=== PATIENT | male | born 2000 | race Caucasian/White ===

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

== ENCOUNTER 2019-03-30 21:38 | Inpatient (IN) | payer BC ==
[2019-03-30] MEDS ORDERED: VANCOMYCIN IV PER PHARMACY 1 EACH MISC MISCELLANE PRN (22:45)
[2019-03-30] MEDS ORDERED: PIPERACILLIN-TAZOBACTAM 3.375 GM in SODIUM CHLORIDE 0.9% 100 ML IVPB STA (22:48)
[2019-03-30] MEDS ORDERED: NALOXONE 0.4 MG/ML 1 ML VIAL IV PRN (22:48)
[2019-03-30] MEDS ORDERED: VANCOMYCIN 1,500 MG in SODIUM CHLORIDE 0.9% 250 ML IVPB STA (22:48)
[2019-03-30] MEDS ORDERED: IBUPROFEN 400 MG TAB PO PRN (22:51)
[2019-03-30] MEDS ORDERED: ACETAMINOPHEN TAB 325 MG TAB PO PRN (22:51)
--- NOTE | 2019-03-30 22:56 | ED ---
General Adult HPI - General Source: patient, RN notes reviewed, old records reviewed Mode of arrival: ambulatory Limitations: no limitations <Jitendra Chun - Last Filed: 03/30/19 23:22> <Ivy Castillo - Last Filed: 03/31/19 04:18> - General Chief complaint: Skin/Abscess/Foreign Body Stated complaint: Mrsa on legs Time Seen by Provider: 03/30/19 21:48 - History of Present Illness Initial comments: 18-year-old male patient past medical history of prior MRSA infections presents to ED with cellulitis and anterior left thigh as well as an anterior right knee. Patient reports that this has been ongoing for approximately 5 days. Patient has been on Bactrim for approximately 3 days and the infection has not improved. 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 Patient has had subjective chills the last 2 days. Patient denies any night sweats denies any cough congestion chest pain shortness of breath. Patient denies all other complaints. Systemic: Pt denies fatigue, myalgia, fever/chills, rash. Pt denies weakness, night sweats, weight loss. Neuro: Pt denies headache, visual disturbances, syncope or pre-syncope. HEENT: Pt denies ocular discharge or irritation, otalgia, rhinorrhea, pharyngitis or notable lymphadenopathy. Cardiopulmonary: Pt denies chest pain, SOB, heart palpitations, dyspnea on exertion. Abdominal/GI: Pt denies abdominal pain, n/v/d. : Pt denies dysuria, burning w/ urination, frequency/urgency. Denies new onset urinary or bowel incontinence. MSK: Pt denies myalgia, loss of strength or function in extremities. Neuro: Pt denies new onset weakness, paresthesias. (Jitendra Chun) - Related Data Home Medications Medication Instructions Recorded Confirmed Sulfamethox-Tmp 800-160Mg [Bactrim 1 tab PO BID 03/30/19 03/30/19 DS 800-160 mg] Allergies Allergy/AdvReac Type Severity Reaction Status Date / Time No Known Allergies Allergy Verified 03/30/19 21:53 Review of Systems ROS Other: All systems not noted in ROS Statement are negative. <Jitendra Chun - Last Filed: 03/30/19 23:22> ROS Other: All systems not noted in ROS Statement are negative. <Ivy Castillo - Last Filed: 03/31/19 04:18> ROS Statement: Those systems with pertinent positive or pertinent negative responses have been documented in the HPI. Past Medical History Past Medical History: No Reported History Additional Past Medical History / Comment(s): MRSA History of Any Multi-Drug Resistant Organisms: MRSA Date of last positivie culture/infection: 02/12/18 MDRO Source:: KNEE Past Surgical History: No Surgical Hx Reported Additional Past Surgical History / Comment(s): previous surgery on right due to MRSA. Past Psychological History: No Psychological Hx Reported Smoking Status: Never smoker Past Alcohol Use History: None Reported Past Drug Use History: None Reported - Past Family History Father Family Medical History: Hyperlipidemia, Hypertension Mother Family Medical History: No Reported History <Jitendra Chun - Last Filed: 03/30/19 23:22> General Exam Limitations: no limitations <Jitendra Chun - Last Filed: 03/30/19 23:22> - General Exam Comments Initial Comments: Constitutional: NAD, AOX3, Pt has pleasant affect. HEENT: NC/AT, trachea midline, neck supple, no lymphadenopathy. Posterior pharynx non erythematous, without exudates. External ears appear normal, without discharge. Mucous membranes moist. Eyes PERRLA, EOM intact. There is no scleral icterus. No pallor noted. Cardiopulmonary: RRR, no murmurs, rubs or gallops, no JVD noted. Lungs CTAB in anterior and posterior sanchez. No peripheral edema. Abdominal exam: Abdomen soft and non-distended. Abdomen non-tender to palpation in all 4 quadrants. Bowel sounds active in LLQ. No hepatosplenomegaly. No ecchymosis Neuro: CN II-XII grossly intact. No nuchal rigidity. MSK: No posterior calf tenderness bilaterally, homans sign negative bilaterally. Posterior tibialis and radial pulse +2 bilaterally. Sensation intact in upper and lower extremities. Full active ROM in upper and lower extremities, 5/5 stregnth. Derm: Approximately 4 x 4 centimeters area of cellulitis on left anterior thigh. Mild tenderness to palpation. No fluctuance. Small ulceration with drainage noted. Culture obtained. Mild amount of erythema and anterior right knee. Full active range of motion of joint. No fluctuance no drainage noted. No warmth. (Jitendra Chun) Course Vital Signs 03/30/19 03/30/19 03/31/19 21:39 22:51 00:05 Temperature 98.7 F 97.3 F L Pulse Rate 64 59 L 62 Respiratory 16 18 18 Rate Blood Pressure 128/66 125/67 137/81 O2 Sat by Pulse 100 98 97 Oximetry Medical Decision Making <Jitendra Chun - Last Filed: 03/30/19 23:22> - Lab Data Result diagrams: 03/30/19 23:20 03/30/19 23:20 <Ivy Castillo - Last Filed: 03/31/19 04:18> - Medical Decision Making 18-year-old male patient past medical history of previous MRSA infections presents to ED for failed outpatient treatment of cellulitis anterior left thigh as well as anterior knee. Patient presented Bactrim. Patient has a subjective chills last 2 days. Denies any other systemic symptoms. Physical exam didn't display cellulitis and left anterior thigh as well as well as right knee. Patient be admitted for IV antibiotics, infectious disease and orthopedic surgery consulted. Plain film of his region does not display any acute process. Case discussed and patient seen by Dr. Castillo. (Jitendra Chun) I personally saw and examined the patient. I reviewed and agree with the mid- level provider findings including all diagnostic interpretations and treatment plans as written unless otherwise stated. Patient care was discussed with primary care physician Dr. West who accepts the admission for IV antibiotics due to failed outpatient therapy for multiple recurrent abscesses. He also requests the infectious disease and orthopedic surgery be consult at. ( Ivy Castillo) Disposition Is patient prescribed a controlled substance at d/c from ED?: No <Jitendra Chun - Last Filed: 03/30/19 23:22> <Ivy Castillo - Last Filed: 03/31/19 04:18> Clinical Impression: Cellulitis Disposition: ADMITTED IP TO THIS HOSP Condition: Serious
--- NOTE | 2019-03-30 23:08 | XR ---
EXAM: XR Left Femur, 2 Views CLINICAL HISTORY: ITS.REASON XR Reason: Pain TECHNIQUE: Frontal and lateral views of the left femur. COMPARISON: No relevant prior studies available. FINDINGS: Bones/joints: Unremarkable. No acute fracture. No dislocation. Soft tissues: Unremarkable. IMPRESSION: Normal left femur x-rays.
--- NOTE | 2019-03-30 23:09 | XR ---
EXAM: XR Right Knee, 3 views CLINICAL HISTORY: ITS.REASON XR Reason: Pain TECHNIQUE: Three views of the right knee. COMPARISON: No relevant prior studies available. FINDINGS: Bones/joints: Unremarkable. No acute fracture. No dislocation. Soft tissues: Unremarkable. IMPRESSION: No acute findings.
[2019-03-30 23:46] LABS: Basophils % (A) 1 %; Eosinophils # (A) 0.4 k/uL (0-0.7); Eosinophils % (A) 6 %; HCT 39.9 % (39.0-53.0); HGB 13.4 gm/dL (13.0-17.5); Lymphocytes # (A) 1.8 k/uL (1.0-4.8); Lymphocytes % (A) 26 %; MCH 30.1 pg (25.0-35.0); MCHC 33.5 g/dL (31.0-37.0); MCV 89.8 fL (80.0-100.0); Mean Platelet Volume 6.8; Monocytes # (A) 0.5 k/uL (0-1.0); Monocytes % (A) 7 %; Neutrophils % (A) 58 %; Platelet Count 246 k/uL (150-450); RBC 4.45 m/uL (4.30-5.90); RDW 13.1 % (11.5-15.5)
[2019-03-30 23:53] LABS: ALT 24 U/L (21-72); AST 25 U/L (17-59); Albumin 4.6 g/dL (3.5-5.0); Alkaline Phosphatase 70 U/L (38-126); Anion Gap 8 mmol/L; Blood Urea Nitrogen 16 mg/dL (9-20); Calcium 9.7 mg/dL (8.4-10.2); Carbon Dioxide 28 mmol/L (22-30); Chloride 104 mmol/L (98-107); Glucose 92 mg/dL (74-99); Potassium 4.3 mmol/L (3.5-5.1); Sodium 140 mmol/L (137-145); Total Bilirubin 0.9 mg/dL (0.2-1.3); Total Protein 7.4 g/dL (6.3-8.2)
[2019-03-31 01:28] VITALS: BMI 22.4
[2019-03-31] MEDS: PIPERACILLIN-TAZOBACTAM 3.375 GM in SODIUM CHLORIDE 0.9% 100 ML IVPB SCH ×2 (08:54→16:13)
--- NOTE | 2019-03-31 09:03 | P.CONS ---
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 He has an abscess to the left anterior mid thigh that has drained on its own and he has an abscess on the anterior right knee that has not drained. Patient was started on Bactrim by his primary care doctor 2 days ago and patient states he was not getting any better and came into [facility] emergency center for evaluation. He was afebrile, white count 7, creatinine 1.03, albumin 4.6. Wound culture was obtained in the ER from the left side abscess. He had a femoral x-ray and the x-ray that were normal. He was started on Zosyn and vancomycin and admitted to the [facility] floor and consult is also in place with Dr. Fair. Patient has been seen in the past by Dr. Izquierdo in January 2018 for right lateral knee abscess which underwent I&D with Dr. Fair. This was positive for MRSA and patient was discharged home on daptomycin. A blood culture status received. Review of Systems All systems: negative Constitutional: Denies anorexia, Denies chills, Denies fatigue, Denies fever, Denies lethargy, Denies malaise, Denies poor appetite, Denies weakness Eyes: denies blurred vision, denies pain Ears, nose, mouth and throat: Denies dental pain, Denies dysphagia, Denies headache, Denies nasal congestion, Denies nasal discharge, Denies sore throat, Denies vertigo Cardiovascular: Denies chest pain, Denies decreased exercise tolerance, Denies dyspnea on exertion, Denies lightheadedness, Denies shortness of breath, Denies syncope Respiratory: Denies cough, Denies cough with sputum, Denies dyspnea, Denies excessive sputum, Denies hemoptysis, Denies home oxygen, Denies wheezing Gastrointestinal: Denies abdominal pain, Denies diarrhea, Denies loss of appetite, Denies nausea, Denies vomiting Genitourinary: Denies dysuria Musculoskeletal: Denies frequent falls, Denies gait dysfunction, Denies muscle weakness, Denies myalgias Integumentary: Reports darkening of skin, Reports wounds, Denies pruritus, Denies rash Neurological: Denies aphasia, Denies change in mentation, Denies change in speech, Denies gait dysfunction, Denies head injury, Denies numbness, Denies seizures, Denies weakness Psychiatric: Denies anxiety, Denies depression Endocrine: Denies fatigue, Denies weight change Past Medical History Past Medical History: No Reported History Additional Past Medical History / Comment(s): MRSA History of Any Multi-Drug Resistant Organisms: MRSA Year Discovered:: 02/12/18 MDRO Source:: KNEE Past Surgical History: No Surgical Hx Reported Additional Past Surgical History / Comment(s): I&D abscess right lateral knee January 2018 MRSA. Past Psychological History: No Psychological Hx Reported Smoking Status: Never smoker Past Alcohol Use History: None Reported Additional Past Alcohol Use History / Comment(s): Patient is a nonsmoker. He denies any marijuana or street drug use. He does drink alcohol occasionally. He lives at home with his parents and is home from college. Past Drug Use History: None Reported - Past Family History Father Family Medical History: Hyperlipidemia, Hypertension Mother Family Medical History: No Reported History Medications and Allergies Home Medications Medication Instructions Recorded Confirmed Type Sulfamethox-Tmp 800-160Mg [Bactrim 1 tab PO BID 03/30/19 03/30/19 History DS 800-160 mg] Allergies Allergy/AdvReac Type Severity Reaction Status Date / Time No Known Allergies Allergy Verified 03/30/19 21:53 Physical Exam Vitals: Vital Signs Temp Pulse Pulse Resp BP BP Pulse Ox 03/31/19 05:46 98.3 F 69 18 125/56 98 03/31/19 02:17 97.6 F 62 16 114/72 98 03/31/19 00:05 97.3 F L 62 18 137/81 97 03/30/19 22:51 59 L 18 125/67 98 03/30/19 21:39 98.7 F 64 16 128/66 100 Intake and Output 03/30/19 03/31/19 03/31/19 22:59 06:59 14:59 Other: # Voids 0 Weight 83.597 kg Gen: This is a thin 18-year-old male. He is resting in bed and appears comfortable and in no acute distress. Patient's father is at the bedsid e. HEENT: Head is atraumatic, normocephalic. Pupils equal, round. Sclerae is anicteric. NECK: Supple. No JVD. No lymphadenopathy. No thyromegaly. LUNGS: Clear to auscultation. No wheezes or rhonchi. No intercostal retractions. HEART: Regular rate and rhythm. No murmur. ABDOMEN: Soft. Bowel sounds are present. No masses. No tenderness. EXTREMITIES: No pedal edema. No calf tenderness. Dorsalis pedis +2 bilaterally. Patient has erythema and edema/abscess to the left mid anterior thigh with no active drainage. There is an abscess to the right anterior knee with no active drainage, warm to the touch. Tender. Surgical scar on the right lateral knee from previous I&D. NEUROLOGICAL: Patient is awake, alert and oriented x3. Cranial nerves 2 through 12 are grossly intact. Results Results: Laboratory Results WBC 7.0 k/uL (4.0-11.0) 03/30/19 23:20 RBC 4.45 m/uL (4.30-5.90) 03/30/19 23:20 Hgb 13.4 gm/dL (13.0-17.5) 03/30/19 23:20 Hct 39.9 % (39.0-53.0) 03/30/19 23:20 MCV 89.8 fL (80.0-100.0) 03/30/19 23:20 MCH 30.1 pg (25.0-35.0) 03/30/19 23:20 MCHC 33.5 g/dL (31.0-37.0) 03/30/19 23:20 RDW 13.1 % (11.5-15.5) 03/30/19 23:20 Plt Count 246 k/uL (150-450) 03/30/19 23:20 Neutrophils % 58 % 03/30/19 23:20 Lymphocytes % 26 % 03/30/19 23:20 Monocytes % 7 % 03/30/19 23:20 Eosinophils % 6 % 03/30/19 23:20 Basophils % 1 % 03/30/19 23:20 Neutrophils # 4.0 k/uL (1.3-7.7) 03/30/19 23:20 Lymphocytes # 1.8 k/uL (1.0-4.8) 03/30/19 23:20 Monocytes # 0.5 k/uL (0-1.0) 03/30/19 23:20 Eosinophils # 0.4 k/uL (0-0.7) 03/30/19 23:20 Basophils # 0.0 k/uL (0-0.2) 03/30/19 23:20 Sodium 140 mmol/L (137-145) 03/30/19 23:20 Potassium 4.3 mmol/L (3.5-5.1) 03/30/19 23:20 Chloride 104 mmol/L (98-107) 03/30/19 23:20 Carbon Dioxide 28 mmol/L (22-30) 03/30/19 23:20 Anion Gap 8 mmol/L 03/30/19 23:20 BUN 16 mg/dL (9-20) 03/30/19 23:20 Creatinine 1.03 mg/dL (0.66-1.25) 03/30/19 23:20 Est GFR (CKD-EPI)AfAm >90 (>60 ml/min/1.73 sqM) 03/30/19 23:20 Est GFR (CKD-EPI)NonAf >90 (>60 ml/min/1.73 sqM) 03/30/19 23:20 Glucose 92 mg/dL (74-99) 03/30/19 23:20 Plasma Lactic Acid Luis Alberto 1.0 mmol/L (0.7-2.0) 03/30/19 23:20 Calcium 9.7 mg/dL (8.4-10.2) 03/30/19 23:20 Total Bilirubin 0.9 mg/dL (0.2-1.3) 03/30/19 23:20 AST 25 U/L (17-59) 03/30/19 23:20 ALT 24 U/L (21-72) 03/30/19 23:20 Alkaline Phosphatase 70 U/L (38-126) 03/30/19 23:20 Total Protein 7.4 g/dL (6.3-8.2) 03/30/19 23:20 Albumin 4.6 g/dL (3.5-5.0) 03/30/19 23:20 CBC & Chem 7: 03/30/19 23:20 03/30/19 23:20 Labs: Microbiology - Last 24 Hours (Table) 03/30/19 20:48 Gram Stain - Preliminary Leg - Left Wound Culture - Preliminary Assessment and Plan Plan: This is a 18-year-old male who presented to the hospital with abscesse s on the lower extremities. He does have a history of MRSA. Dr. Fair is on consult and anticipate I&D will be done. He is currently on Zosyn and vancomycin. Wound culture is in progress and blood cultures status received. Continue supportive care. Further recommendations as patient regresses. The above dictated assessment and findings were discussed with Dr. Guerrier. The impression and plan of care have been directed as dictated. Sayda Martinez nurse practitioner acting as scribe for Dr. Guerrier.
--- NOTE | 2019-03-31 09:56 | P.CNOR ---
History of Present Illness - [facility] Consult date: 03/31/19 Consult reason: other History of present illness: Patient is a 18-year-old male who presented to [facility] late last night with regards to her question will abscess involving the left anterior thigh and right knee. 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 He noticed the left anterior thigh abscess forming about a week ago, it did start to drain on its own. He admits that the right knee abscess started a few days prior. Patient is a history of a right lateral knee abscess, he underwent an I&D by Dr. Fair last year. He was followed by infectious disease during his hospital stay, he was discharged on antibiotics. Patient was seen by his primary care doctor a few days ago and started on oral antibiotics. At bedside today, he is resting comfortably. He admits to discomfort more of the right knee. States that the redness has improved over the left thigh abscess after the IV antibiotics were started last night. He denies any current fever or chills. He denies any other orthopedic complaints at this time. Review of Systems Constitutional: Reports as per [facility] Past Medical History Past Medical History: No Reported History Additional Past Medical History / Comment(s): MRSA History of Any Multi-Drug Resistant Organisms: MRSA Year Discovered:: 02/12/18 MDRO Source:: KNEE Past Surgical History: No Surgical Hx Reported Additional Past Surgical History / Comment(s): I&D abscess right lateral knee January 2018 MRSA. Past Psychological History: No Psychological Hx Reported Smoking Status: Never smoker Past Alcohol Use History: None Reported Additional Past Alcohol Use History / Comment(s): Patient is a nonsmoker. He denies any marijuana or street drug use. He does drink alcohol occasionally. He lives at home with his parents and is home from college. Past Drug Use History: None Reported - Past Family History Father Family Medical History: Hyperlipidemia, Hypertension Mother Family Medical History: No Reported History Medications and Allergies Home Medications Medication Instructions Recorded Confirmed Type Sulfamethox-Tmp 800-160Mg [Bactrim 1 tab PO BID 03/30/19 03/30/19 History DS 800-160 mg] Allergies Allergy/AdvReac Type Severity Reaction Status Date / Time No Known Allergies Allergy Verified 03/30/19 21:53 Physical Examination Right lower extremity: No obvious effusion present of the knee, no open lesions are visualized. Right lateral knee scar is notable, is well-healed. There is erythema and soft tissue swelling present over the right prepatellar bursa. No open area present, no areas of drainage. Present. Patient's range of motion with the knee is intact with regards to extension and flexion, some slight discomfort is over the anterior area of the redness. Sensation to light touch that extremities intact, calf is soft, tenderness with palpation. Dorsalis pedis pulses 2+. Left lower extremity: Obvious area of erythema with notable scapular soft tissue swelling of the anterior thigh. Abrasion noted over the left knee, good scab formation no drainage. No effusion present over the knee. Range of motion is intact, no pain with extension and flexion. Calf is soft, no tenderness with palpation. Sensory exam light touch is intact. Dorsal pedis pulses 2+ Results - Labs Labs: Microbiology - Last 24 Hours (Table) 03/30/19 20:48 Gram Stain - Preliminary Leg - Left Wound Culture - Preliminary H & H 03/30/19 Range/Units 23:20 Hgb 13.4 (13.0-17.5) gm/dL Hct 39.9 (39.0-53.0) % Result Diagrams: 03/30/19 23:20 03/30/19 23:20 Assessment and Plan Plan: Imaging: Right knee x-rays and left femur x-rays are taken. No acute osseous abnormality noted. No fractures or dislocations present. Assessment: 1. Right knee septic prepatellar bursitis 2. Left anterior thigh abscess 3. History of previous right lateral knee abscess with MRSA infection Plan: Dr. Fair was available today to examine the patient and discussed treatment options. Patient's stat was at bedside today. We would like to proceed with an incision and drainage of both the prepatellar bursa on the right knee and the thigh abscess on the left. We'll like to proceed with this on 04/01/2019. Patient will be nothing by mouth after midnight tonight. Risks and benefits of procedure discussed with patient at bedside, this including but not excluded fraction, blood loss, wound care, need for subsequent surgery. Patient and family are in good understanding like to proceed. Obtain consent Nothing by mouth after midnight Other medical technologist blood bank recommendations Further recommendations to follow
[2019-03-31] MEDS ORDERED: VANCOMYCIN 1,500 MG in SODIUM CHLORIDE 0.9% 250 ML IVPB SCH (10:00)
[2019-03-31] MEDS: ceFAZolin IN SWFI 2 GM/20 ML SYRINGE IVP SCH (20:43)
[2019-03-31] MEDS: VANCOMYCIN 1,500 MG in SODIUM CHLORIDE 0.9% 250 ML IVPB SCH (20:43)
[2019-03-31] MEDS: MUPIROCIN 2% OINT 22 GM TUBE TOPICAL SCH (20:43)
--- NOTE | 2019-03-31 23:18 | P.CON ---
Consult Note - . 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 He has an abscess to the left anterior mid thigh that has drained on its own and he has an abscess on the anterior right knee that has not drained. Patient was started on Bactrim by his primary care doctor 2 days ago and patient states he was not getting any better and came into [facility] emergency center for evaluation. He was afebrile, white count 7, creatinine 1.03, albumin 4.6. Wound culture was obtained in the ER from the left side abscess. He had a femoral x-ray and the x-ray that were normal. He was started on Zosyn and vancomycin and admitted to the [facility] floor and consult is also in place with Dr. Fair. Patient has been seen in the past by Dr. Izquierdo in January 2018 for right lateral knee abscess which underwent I&D with Dr. Fair. This was positive for MRSA and patient was discharged home on daptomycin. A blood culture status received. Please see the consult note is dictated by nurse practitioner Mrs. Sayda Martinez. 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 And now is developed evidence of the benefit of a prepatellar bursitis and abscess to the right knee and abscess to the left thigh. Despite treatment the outpatient setting they have worsened and constantly he has been admitted and will be seen in orthopedics for the incision and drainage. Depending on the findings will likely be discharged after incision and drainage. For antibiotic therapy vancomycin with Ancef and will be utilized pending culture results. Patient does have a few small lesions on his forehead for which mupirocin will be applied. We discussed bleach bath and how this may be helpful in preventing further recurrences here in the near future. I agree with evaluation, assessment and plan as dictated by nurse practitioner Mrs. Sayda Martinez.
[2019-04-01] MEDS: MUPIROCIN 2% OINT 22 GM TUBE TOPICAL SCH ×4 (00:23→20:48)
[2019-04-01] MEDS: ceFAZolin IN SWFI 2 GM/20 ML SYRINGE IVP SCH ×4 (00:24→23:42)
[2019-04-01] MEDS: VANCOMYCIN 1,500 MG in SODIUM CHLORIDE 0.9% 250 ML IVPB SCH ×2 (04:27→11:14)
[2019-04-01] MEDS ORDERED: VANCOMYCIN TROUGH DUE 1 EACH MISC MISCELLANE ONE ×2 (09:00→11:00)
--- NOTE | 2019-04-01 09:02 | P.HPIM ---
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 Reports left mid thigh abscess had spontaneously drained. Right knee had been previously drained 2017, mild edema, decreasing redness. Patient had been on oral Bactrim since Friday as per PCP with no improvement. Right knee and left Femur x-rays reported bones/joints/soft tissues unremarkable. Denies fevers or chills. Afebrile, normal WBC. Wound and blood cultures obtained. IV antibiotics of vancomycin and Zosyn initiated, ID and orthopedic surgery consulted. Review of Systems Review of systems: CONSTITUTIONAL: No fever, no malaise, no fatigue. HEENT: No recent visual problems or hearing problems. Denied any sore throat. CARDIOVASCULAR: No chest pain, orthopnea, PND, no palpitations, no syncope. PULMONARY: No shortness of breath, no cough, no hemoptysis. GASTROINTESTINAL: No diarrhea, no nausea, no vomiting, no abdominal pain. Normoactive bowel sounds. NEUROLOGICAL: No headaches, no weakness, no numbness. HEMATOLOGICAL: Denies any bleeding or petechiae. GENITOURINARY: Denies any burning micturition, frequency, or urgency. MUSCULOSKELETAL/RHEUMATOLOGICAL: Denies any joint pain, swelling, or any muscle pain. ENDOCRINE: Denies any polyuria or polydipsia. PSYCHIATRIC: No anxiety, no depression The rest of the 14 point review of systems is negative Past Medical History Past Medical History: No Reported History Additional Past Medical History / Comment(s): MRSA History of Any Multi-Drug Resistant Organisms: MRSA Date of last positivie culture/infection: 02/12/18 MDRO Source:: KNEE Past Surgical History: No Surgical Hx Reported Additional Past Surgical History / Comment(s): I&D abscess right lateral knee January 2018 MRSA. Past Psychological History: No Psychological Hx Reported Smoking Status: Never smoker Past Alcohol Use History: None Reported Additional Past Alcohol Use History / Comment(s): Patient is a nonsmoker. He denies any marijuana or street drug use. He does drink alcohol occasionally. He lives at home with his parents and is home from college. Past Drug Use History: None Reported - Past Family History Father Family Medical History: Hyperlipidemia, Hypertension Mother Family Medical History: No Reported History Medications and Allergies Home Medications Medication Instructions Recorded Confirmed Type Sulfamethox-Tmp 800-160Mg [Bactrim 1 tab PO BID 03/30/19 03/30/19 History DS 800-160 mg] Allergies Allergy/AdvReac Type Severity Reaction Status Date / Time No Known Allergies Allergy Verified 03/30/19 21:53 Physical Exam Vitals: Vital Signs Temp Pulse Pulse Resp BP BP Pulse Ox 03/31/19 08:00 18 03/31/19 05:46 98.3 F 69 18 125/56 98 03/31/19 02:17 97.6 F 62 16 114/72 98 03/31/19 00:05 97.3 F L 62 18 137/81 97 03/30/19 22:51 59 L 18 125/67 98 03/30/19 21:39 98.7 F 64 16 128/66 100 Intake and Output 03/30/19 03/31/19 03/31/19 22:59 06:59 14:59 Other: # Voids 0 Weight 83.597 kg PHYSICAL EXAM: VITAL SIGNS: As above GENERAL: Sitting up in bed, no acute distress HEENT: Conjunctivae normal. eyes normal. Oral mucosa moist NECK: No JVD. No thyroid enlargement. No LNs CARDIOVASCULAR: S1, S2 regular. No murmur RESPIRATION: Breath sounds clear to auscultation. No rhonchi or crackles. No wheezing .No bronchial breathing. ABDOMEN: Soft, nontender . No guarding. no masses palpable. Bowel sounds heard. LEGS: No pedal edema. no calf tenderness, positive DP pulses.Left anterior thigh abscess, erythema, scabbed, tender with no drainage. Right knee mild edema,warm, pink, nondraining, prior surgical scar present. PSYCHIATRY: Alert and oriented -3, mood and affect normal. NERVOUS SYSTEM: Cranial N 2-12 grossly normal. Moves all 4 limbs. No focal deficits. Strength and sensation grossly intact. Lymphatic system. No LN neck axilla or groin. Results CBC & Chem 7: 03/30/19 23:20 03/30/19 23:20 Labs: Microbiology - Last 24 Hours (Table) 03/30/19 20:48 Gram Stain - Preliminary Leg - Left Wound Culture - Preliminary Thrombosis Risk Factor Assmnt - Choose All That Apply Any of the Below Risk Factors Present?: No Assessment and Plan Assessment: -Left anterior thigh abscess, failed outpatient treatment -Right knee cellulitis, bursitis -History of right knee abscess, status post I&D with MRSA Plan: Continue on current medication regime ,monitoring and symptomatic treatment. Maintain IV antibiotics of Zosyn and vancomycin. Cultures pending.Infectious disease and orthopedics consulted. Potential I&D pending orthopedic surgery evaluation. Patient and parents at bedside and updated on plan a care, verbalized understanding and agreement with. Further recommendations to follow. The impression and plan of care has been dictated as directed. : I performed a history and examination of this patient, discussed the same with the dictator. I agree with the dictator's note ,documented as a scribe. Any additional findings or plans will be noted. Time taken 35 minutes
--- NOTE | 2019-04-01 10:57 | P.PN ---
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 Reports left mid thigh abscess had spontaneously drained. Right knee had been previously drained 2017, mild edema, decreasing redness. Patient had been on oral Bactrim since Friday as per PCP with no improvement. Right knee and left Femur x-rays reported bones/joints/soft tissues unremarkable. Denies fevers or chills. Afebrile, normal WBC. Wound and blood cultures obtained. IV antibiotics of vancomycin and Zosyn initiated, ID and orthopedic surgery consulted. 04/01/19 Evaluated by orthopedics and infectious disease. IV antibiotics adjusted to and vancomycin as per infectious disease. NPO, awaiting I&D as per orthopedic surgery. Afebrile, normal WBC. Labs pending. Objective - Vital Signs Vital signs: Vital Signs Temp 97.8 F 04/01/19 07:00 Pulse 66 04/01/19 07:00 Resp 16 04/01/19 07:00 BP 120/55 04/01/19 07:00 Pulse Ox 98 04/01/19 07:00 Intake & Output 03/31/19 04/01/19 04/01/19 18:59 06:59 18:59 Intake Total 1000 500 Balance 1000 500 Intake: Oral 1000 500 Other: Voiding Method Toilet Toilet # Voids 0 0 # Bowel Movements 0 - Exam VITAL SIGNS: As above GENERAL: Sitting up in bed, no acute distress HEENT: Conjunctivae normal. eyes normal. Oral mucosa moist NECK: Supple, No JVD. No thyroid enlargement. No LNs CARDIOVASCULAR: S1, S2 regular. No murmur, rub or gallop. RESPIRATION: Breath sounds clear to auscultation. No rhonchi, crackles or wheezing. ABDOMEN: Soft, nontender . No guarding. no masses palpable. Bowel sounds heard. LEGS: No pedal edema. Left anterior thigh abscess, erythema, scabbed, tender with no drainage. Right knee edema,warm, erythema, nondraining, prior healed surgical scar present. Right anterior heath with small reddened area this morning, nondraining.+Dp pulses. PSYCHIATRY: Alert and oriented -3, mood and affect normal. NERVOUS SYSTEM: Cranial N 2-12 grossly normal. Moves all 4 limbs. No focal deficits. Strength and sensation grossly intact. - Labs CBC & Chem 7: 03/30/19 23:20 03/30/19 23:20 Labs: Microbiology - Last 24 Hours (Table) 03/30/19 23:20 Blood Culture - Preliminary Blood No Growth after 24 hours 03/30/19 20:48 Gram Stain - Preliminary Leg - Left Wound Culture - Preliminary Presumptive Staph aureus Assessment and Plan Assessment: -Left anterior thigh abscess, failed outpatient treatment -Right knee bursitis, septic -History of right knee abscess, status post I&D with MRSA Plan: Continue on current medication regime ,monitoring and symptomatic israel tment. NPO, awaiting I & D of both left thigh and right knee with orthopedic surgery.Continue on IV antibiotics as per ID. Cultures pending. Further recommendations to follow. The impression and plan of care has been dictated as directed. : I performed a history and examination of this patient, discussed the same with the dictator. I agree with the dictator's note ,documented as a scribe. Any additional findings or plans will be noted. Time taken 35 minutes
[2019-04-01] MEDS: PANTOPRAZOLE 40 MG/10 ML VIAL IVP SCH (11:16)
[2019-04-01 11:24] LABS: Basophils % (A) 1 %; Eosinophils # (A) 0.3 k/uL (0-0.7); Eosinophils % (A) 6 %; HCT 40.4 % (39.0-53.0); HGB 13.2 gm/dL (13.0-17.5); Lymphocytes # (A) 1.2 k/uL (1.0-4.8); Lymphocytes % (A) 22 %; MCH 29.6 pg (25.0-35.0); MCHC 32.7 g/dL (31.0-37.0); MCV 90.7 fL (80.0-100.0); Mean Platelet Volume 6.8; Monocytes # (A) 0.4 k/uL (0-1.0); Monocytes % (A) 6 %; Neutrophils # (A) 3.4 k/uL (1.3-7.7); Neutrophils % (A) 62 %; Platelet Count 246 k/uL (150-450); RBC 4.45 m/uL (4.30-5.90); RDW 13.3 % (11.5-15.5); WBC 5.6 k/uL (4.0-11.0)
[2019-04-01 11:26] LABS: Anion Gap 6 mmol/L; Blood Urea Nitrogen 11 mg/dL (9-20); Calcium 9.4 mg/dL (8.4-10.2); Carbon Dioxide 28 mmol/L (22-30); Chloride 107 mmol/L (98-107); Glucose 91 mg/dL (74-99); Potassium 4.9 mmol/L (3.5-5.1); Sodium 141 mmol/L (137-145)
[2019-04-01] MEDS ORDERED: IV FLUID CONTINUATION 1,000 ML IV ONE (13:52)
[2019-04-01] MEDS ORDERED: ONDANSETRON 4 MG/2 ML VIAL IVP PRN (14:20)
[2019-04-01] MEDS ORDERED: HYDROmorphone 0.5 MG/0.5 ML SYRINGE IVP PRN (14:20)
[2019-04-01] MEDS ORDERED: LACTATED RINGERS 1,000 ML IV SCH (14:30)
[2019-04-01] MEDS ORDERED: HYDROcodone/APAP 5-325MG 1 EACH TAB PO PRN (14:46)
[2019-04-01] MEDS ORDERED: LACTATED RINGERS 1,000 ML IV ONE (14:55)
[2019-04-01] MEDS ORDERED: LIDOCAINE 1% INJ 10MG/ML (20 ML MDV) ONE (15:15)
[2019-04-01] MEDS ORDERED: MIDAZOLAM 2 MG/2 ML VIAL ONE (15:15)
[2019-04-01] MEDS ORDERED: PROPOFOL 10 MG/ML 20 ML VIAL IV ONE (15:15)
[2019-04-01] MEDS ORDERED: KETOROLAC 30 MG/ML 1 ML VIAL ONE (15:15)
[2019-04-01] MEDS ORDERED: fentaNYL (PF) 50 MCG/ML 2 ML AMP ONE (15:15)
--- NOTE | 2019-04-01 16:00 | P.OP ---
Date of Procedure: 04/01/19 Preoperative Diagnosis: 1. Right anterior knee abscess 2. Left anterior thigh abscess Postoperative Diagnosis: Same Procedure(s) Performed: 1. Incision and drainage right anterior knee abscess 2. Incision and drainage left anterior thigh abscess Anesthesia: MIHIR Surgeon: Roque Fair Estimated Blood Loss (ml): 10 Pathology: other (Cultures) Condition: stable Disposition: PACU Indications for Procedure: 18-year-old patient seen with probable abscess involving the anterior right knee and anterior left thigh. I recommended incision with drainage. I discussed the procedure, risks, complications and recovery. Patient family were agreeable. Consent was obtained. Operative Findings: See description of procedure Description of Procedure: The patient was taken to the operative suite. The patient underwent a general anesthetic by the department of anesthesia. The right anterior knee and left anterior thigh areas were prepped and draped in the normal sterile orthopedic fashion. I made an incision along the anterior aspect right knee sharply through skin measuring approximately 4-5cm. I encountered some purulent material. I obtained cultures of this. I irrigated the wound. I explored the wound. It did not penetrate the knee capsule. It was superficial. There did not appear to be any necrotic tissue within the wound. I now irrigated the wound with 1000 mL of antibiotic irrigant. I again explored the wound and noted no necrotic tissue. The incision was now loosely approximated with 2 interrupted nylon sutures. I now turned my attention to the left anterior thigh. I made a 3-4 cm incision along the area of the proposed abscess. I did not encounter any purulent material. Cultures were obtained. The wound was explored. I did not note any tracts or pockets of abnormality. There was no necrotic tissue present. I irrigated the wound out with 1000 mL antibiotic irrigant. I loosely approximated the incision with one simple interrupted nylon suture. Sterile dressings were applied to both sites. The patient was awakened and transferred to recovery having tolerated the procedure well.
[2019-04-01] MEDS: traMADol 50 MG TAB PO SCH ×2 (17:26→23:43)
[2019-04-01 20:30] VITALS: RESP 18
[2019-04-01] MEDS: VANCOMYCIN 1,250 MG in SODIUM CHLORIDE 0.9% 250 ML IVPB SCH (20:47)
[2019-04-02] MEDS: VANCOMYCIN 1,250 MG in SODIUM CHLORIDE 0.9% 250 ML IVPB SCH ×2 (03:42→11:45)
[2019-04-02 05:21] VITALS: BP 112/54; PULSE 64; TEMP 97.9
[2019-04-02] MEDS: PANTOPRAZOLE 40 MG/10 ML VIAL IVP SCH (07:22)
[2019-04-02] MEDS: ceFAZolin IN SWFI 2 GM/20 ML SYRINGE IVP SCH (07:22)
[2019-04-02] MEDS: MUPIROCIN 2% OINT 22 GM TUBE TOPICAL SCH (07:23)
[2019-04-02] MEDS: traMADol 50 MG TAB PO SCH ×2 (07:23→11:46)
--- NOTE | 2019-04-02 09:38 | P.PN ---
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 He has an abscess to the left anterior mid thigh that has drained on its own and he has an abscess on the ant erior right knee that has not drained. Patient was started on Bactrim by his primary care doctor 2 days ago and patient states he was not getting any better and came into [facility] emergency center for evaluation. He was afebrile, white count 7, creatinine 1.03, albumin 4.6. Wound culture was obtained in the ER from the left side abscess. He had a femoral x-ray and the x-ray that were normal. He was started on Zosyn and vancomycin and admitted to the [facility] floor and consult is also in place with Dr. Fair. Patient has been seen in the past by Dr. Izquierdo in January 2018 for right lateral knee abscess which underwent I&D with Dr. Fair. This was positive for MRSA and patient was discharged home on daptomycin. A blood culture status received. 04/02/2019, patient is now had incision and drainage of the 2 abscess site. There appear to be no deep penetration of the abscesses. No knee involvement and no muscle involvement into the left thigh. The patient is feeling considerably better this morning and feels well enough to be discharged home. He is having no fevers or chills. Pain is well-controlled. Objective - Vital Signs Vital signs: Vital Signs Temp 97.9 F 04/02/19 05:00 Pulse 64 04/02/19 05:00 Resp 18 04/02/19 08:00 BP 112/54 04/02/19 05:00 Pulse Ox 97 04/02/19 05:00 Intake & Output 04/01/19 04/02/19 04/02/19 18:59 06:59 18:59 Intake Total 1000 500 Output Total 10 Balance 990 500 Intake: IV 1000 Oral 500 Output: Estimated Blood Loss 10 Other: Voiding Method Toilet Toilet Toilet # Voids 3 1 # Bowel Movements 0 - Exam Gen: This is a thin 18-year-old male. He is resting in bed and appears comfortable and in no acute distress. Patient's father is at the bedside. HEENT: Head is atraumatic, normocephalic. Pupils equal, round. Sclerae is ani cteric. NECK: Supple. No JVD. No lymphadenopathy. No thyromegaly. LUNGS: Clear to auscultation. No wheezes or rhonchi. No intercostal retractions. HEART: Regular rate and rhythm. No murmur. ABDOMEN: Soft. Bowel sounds are present. No masses. No tenderness. EXTREMITIES: No pedal edema. No calf tenderness. Dorsalis pedis +2 bilaterally. Abscess to the left medial thigh has had incision and drainage. There is very little tenderness. Erythema fluctuance yet resolved. The abscess to the right anterior aspect the knee is also much improved. There is no fluctuance. Erythema is almost resolved. Tenderness is improved. Her other new abscesses are seen. No ascending cellulitis or lymphangitis is seen. NEUROLOGICAL: Patient is awake, alert and oriented x3. - Labs CBC & Chem 7: 04/01/19 10:48 04/01/19 10:48 Labs: Microbiology - Last 24 Hours (Table) 04/01/19 15:47 Gram Stain - Preliminary Knee - Right Wound Culture - Preliminary 04/01/19 15:47 Gram Stain - Preliminary Thigh - Left Wound Culture - Preliminary 03/30/19 23:20 Blood Culture - Preliminary Blood No Growth after 48 hours 04/01/19 15:47 Anaerobic Culture - Preliminary Knee - Right 04/01/19 15:47 Anaerobic Culture - Preliminary Thigh - Left 03/30/19 20:48 Gram Stain - Final Leg - Left Wound Culture - Final Staphylococcus aureus Laboratory Results WBC 5.6 k/uL (4.0-11.0) 04/01/19 10:48 RBC 4.45 m/uL (4.30-5.90) 04/01/19 10:48 Hgb 13.2 gm/dL (13.0-17.5) 04/01/19 10:48 Hct 40.4 % (39.0-53.0) 04/01/19 10:48 MCV 90.7 fL (80.0-100.0) 04/01/19 10:48 MCH 29.6 pg (25.0-35.0) 04/01/19 10:48 MCHC 32.7 g/dL (31.0-37.0) 04/01/19 10:48 RDW 13.3 % (11.5-15.5) 04/01/19 10:48 Plt Count 246 k/uL (150-450) 04/01/19 10:48 Neutrophils % 62 % 04/01/19 10:48 Lymphocytes % 22 % 04/01/19 10:48 Monocytes % 6 % 04/01/19 10:48 Eosinophils % 6 % 04/01/19 10:48 Basophils % 1 % 04/01/19 10:48 Neutrophils # 3.4 k/uL (1.3-7.7) 04/01/19 10:48 Lymphocytes # 1.2 k/uL (1.0-4.8) 04/01/19 10:48 Monocytes # 0.4 k/uL (0-1.0) 04/01/19 10:48 Eosinophils # 0.3 k/uL (0-0.7) 04/01/19 10:48 Basophils # 0.0 k/uL (0-0.2) 04/01/19 10:48 Sodium 141 mmol/L (137-145) 04/01/19 10:48 Potassium 4.9 mmol/L (3.5-5.1) 04/01/19 10:48 Chloride 107 mmol/L (98-107) 04/01/19 10:48 Carbon Dioxide 28 mmol/L (22-30) 04/01/19 10:48 Anion Gap 6 mmol/L 04/01/19 10:48 BUN 11 mg/dL (9-20) 04/01/19 10:48 Creatinine 0.86 mg/dL (0.66-1.25) 04/01/19 10:48 Est GFR (CKD-EPI)AfAm >90 (>60 ml/min/1.73 sqM) 04/01/19 10:48 Est GFR (CKD-EPI)NonAf >90 (>60 ml/min/1.73 sqM) 04/01/19 10:48 Glucose 91 mg/dL (74-99) 04/01/19 10:48 Plasma Lactic Acid Luis Alberto 1.0 mmol/L (0.7-2.0) 03/30/19 23:20 Calcium 9.4 mg/dL (8.4-10.2) 04/01/19 10:48 Total Bilirubin 0.9 mg/dL (0.2-1.3) 03/30/19 23:20 AST 25 U/L (17-59) 03/30/19 23:20 ALT 24 U/L (21-72) 03/30/19 23:20 Alkaline Phosphatase 70 U/L (38-126) 03/30/19 23:20 Total Protein 7.4 g/dL (6.3-8.2) 03/30/19 23:20 Albumin 4.6 g/dL (3.5-5.0) 03/30/19 23:20 Vancomycin Trough 20.7 ug/mL 04/01/19 10:48 Microbiology 04/01/19 15:47 Knee - Right Gram Stain - Preliminary 04/01/19 15:47 Knee - Right Wound Culture - Preliminary 04/01/19 15:47 Thigh - Left Gram Stain - Preliminary 04/01/19 15:47 Thigh - Left Wound Culture - Preliminary 03/30/19 23:20 Blood Blood Culture - Preliminary No Growth after 48 hours 04/01/19 15:47 Knee - Right Anaerobic Culture - Preliminary 04/01/19 15:47 Thigh - Left Anaerobic Culture - Preliminary 03/30/19 20:48 Leg - Left Gram Stain - Final 03/30/19 20:48 Leg - Left Wound Culture - Final Staphylococcus aureus Assessment and Plan (1) Cellulitis Current Visit: Yes Status: Acute Code(s): L03.90 - CELLULITIS, UNSPECIFIED SNOMED Code(s): 749255722 (2) Subcutaneous abscess of knee region Narrative/Plan: Pleasant 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 And now is developed evidence of the benefit of a prepatellar bursitis and abscess to the right knee and abscess to the left thigh. Despite treatment the outpatient setting they have worsened and constantly he has been admitted and will be seen in orthopedics for the incision and drainage. Depending on the findings will likely be discharged after incision and drainage. For antibiotic therapy vancomycin with Ancef and will be utilized pending culture results. Patient does have a few small lesions on his forehead for which mupirocin will be applied. We discussed bleach bath and how this may be helpful in preventing further recurrences here in the near future. 04/02/2019 patient is now considerably improved. Incision and drainage has improved the abscess sites. He does not have any significant pain or discomfort at this time. The infection appears to be doing very well after incision and drainage. There is no ascending infection. No evidence of sepsis or bacteremia. Culture with MSSA. Antibiotic with cephalexin 500 mg every 6 hours for 7 days is sent to his home pharmacy. Mupirocin topically with a nonstick dressing has been applied. Change daily with the shower. Information for bleach bath has been provided. Current Visit: Yes Status: Acute Code(s): L02.419 - CUTANEOUS ABSCESS OF LIMB, UNSPECIFIED SNOMED Code(s): 9552775854625550
[2019-04-02 09:51] LABS: Basophils % (A) 1 %; Eosinophils # (A) 0.4 k/uL (0-0.7); Eosinophils % (A) 9 %; HCT 41.7 % (39.0-53.0); HGB 13.7 gm/dL (13.0-17.5); Lymphocytes # (A) 1.4 k/uL (1.0-4.8); Lymphocytes % (A) 32 %; MCH 30.1 pg (25.0-35.0); MCHC 32.9 g/dL (31.0-37.0); MCV 91.4 fL (80.0-100.0); Mean Platelet Volume 6.9; Monocytes # (A) 0.3 k/uL (0-1.0); Monocytes % (A) 7 %; Neutrophils % (A) 48 %; Platelet Count 232 k/uL (150-450); RBC 4.56 m/uL (4.30-5.90); RDW 13.2 % (11.5-15.5); WBC 4.3 k/uL (4.0-11.0)
[2019-04-02 10:08] LABS: Anion Gap 6 mmol/L; Blood Urea Nitrogen 11 mg/dL (9-20); Calcium 9.1 mg/dL (8.4-10.2); Carbon Dioxide 28 mmol/L (22-30); Chloride 106 mmol/L (98-107); Glucose 96 mg/dL (74-99); Potassium 4.7 mmol/L (3.5-5.1); Sodium 140 mmol/L (137-145)
--- NOTE | 2019-04-02 11:00 | P.PN ---
Subjective Progress Note Date: 04/02/19 Principal diagnosis: Status post I&D right knee abscess/left thigh abscess Patient evaluated at bedside today, he is resting comfortably. Initial postoperative bandages were removed. He has no fevers or chills. He has no increase in pain. Objective - Vital Signs Vital signs: Vital Signs Temp 97.9 F 04/02/19 05:00 Pulse 64 04/02/19 05:00 Resp 18 04/02/19 08:00 BP 112/54 04/02/19 05:00 Pulse Ox 97 04/02/19 05:00 Intake & Output 04/01/19 04/02/19 04/02/19 18:59 06:59 18:59 Intake Total 1000 500 Output Total 10 Balance 990 500 Intake: IV 1000 Oral 500 Output: Estimated Blood Loss 10 Other: Voiding Method Toilet Toilet Toilet # Voids 3 1 # Bowel Movements 0 - Exam bilateral lower extremities: Initial postoperative bandages were removed. Stitches are in good position and condition. Erythema around both sites is improved. No active drainage visualized. No signs of streaking erythema. Sensation to light touch throughout bilateral extremities intact, dorsal pedis pulses 2+. - Labs CBC & Chem 7: 04/02/19 08:47 04/02/19 08:47 Labs: Microbiology - Last 24 Hours (Table) 04/01/19 15:47 Gram Stain - Preliminary Knee - Right Wound Culture - Preliminary 04/01/19 15:47 Gram Stain - Preliminary Thigh - Left Wound Culture - Preliminary 03/30/19 23:20 Blood Culture - Preliminary Blood No Growth after 48 hours 04/01/19 15:47 Anaerobic Culture - Preliminary Knee - Right 04/01/19 15:47 Anaerobic Culture - Preliminary Thigh - Left 03/30/19 20:48 Gram Stain - Final Leg - Left Wound Culture - Final Staphylococcus aureus Assessment and Plan Plan: Assessment: 1. Status post I&D right anterior knee/left anterior thigh abscess Plan: Wound care instructions were discussed with the patient today at bedside, he is in good understanding Infectious disease recommendations Follow-up in 2 weeks for stitches Time with Patient: Less than 30
--- NOTE | 2019-04-02 17:46 | P.DS ---
Providers Date of admission: 03/31/19 10:36 Expected date of discharge: 04/02/19 Attending physician: Leo West Consults: 03/30/19 22:48 Consult Physician Stat Consulting Provider: Lyndon Guerrier Consult Reason/Comments: cellulitis, failed outpt Do you want consulting provider notified?: Yes Consult Physician Stat Consulting Provider: Roque Fair Consult Reason/Comments: cellulitis, failed outpt Do you want consulting provider notified?: Yes 03/30/19 22:52 Consult Physician Urgent Consulting Provider: Roque Fair Consult Reason/Comments: abscess on knee Do you want consulting provider notified?: Yes, Notify in am 03/30/19 22:53 Consult Physician Urgent Consulting Provider: Lyndon Guerrier Consult Reason/Comments: recurrent abscesses Do you want consulting provider notified?: Yes, Notify in am Primary care physician: Leo West [facility] Course: Final Diagnoses: -Left anterior thigh abscess, failed outpatient treatment ,status post I&D -Right knee bursitis, septic,status post I&D -History of right knee abscess, status post I&D with MRSA 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 Reports left mid thigh abscess had spontaneously drained. Right knee had been previously drained 2018, mild edema, decreasing redness. Patient had been on oral Bactrim since Friday as per PCP with no improvement. Right knee and left Femur x-rays reported bones/joints/soft tissues unremarkable. Denies fevers or chills. Afebrile, normal WBC. Wound and blood cultures obtained. IV antibiotics of vancomycin and Zosyn initiated, ID and orthopedic surgery consulted. 04/01/19 Evaluated by orthopedics and infectious disease. IV antibiotics adjusted to and vancomycin as per infectious disease. NPO, awaiting I&D as per orthopedic surgery. Afebrile, normal WBC. Labs pending. status post I&D right knee abscess and left thigh abscess,tolerated procedure well, afebrile. Pain controlled.cleared by both orthopedic surgery and infectious disease for discharge. Patient is being discharged home in a stable condition with her prognosis. Exam GENERAL: alert and oriented 3, no acute distress CARDIOVASCULAR: S1, S2 regular. No murmur, rub or gallop. RESPIRATION: Breath sounds clear to auscultation. No rhonchi, crackles or wheezing. ABDOMEN: Soft, nontender . No guarding. no masses palpable. Bowel sounds heard. LEGS: Drsings C,D,I NERVOUS SYSTEM: Cranial N 2-12 grossly normal. Moves all 4 limbs. No focal deficits. Strength and sensation grossly intact. Microbiology 04/01/19 15:47 Thigh - Left Gram Stain - Preliminary 04/01/19 15:47 Thigh - Left Wound Culture - Preliminary 04/01/19 15:47 Knee - Right Gram Stain - Preliminary 04/01/19 15:47 Knee - Right Wound Culture - Preliminary 03/30/19 23:20 Blood Blood Culture - Preliminary No Growth after 48 hours 04/01/19 15:47 Knee - Right Anaerobic Culture - Preliminary 04/01/19 15:47 Thigh - Left Anaerobic Culture - Preliminary 03/30/19 20:48 Leg - Left Gram Stain - Final 03/30/19 20:48 Leg - Left Wound Culture - Final Staphylococcus aureus The impression and plan of care has been dictated as directed. : I performed a history and examination of this patient, discussed the same with the dictator. I agree with the dictator's note ,documented as a scribe. Any additional findings or plans will be noted. Time taken: 35 minutes Patient Condition at Discharge: Stable Plan - Discharge Summary New Discharge Prescriptions: New Cephalexin [Keflex] 500 mg PO Q6HR #28 cap Mupirocin 2% Oint [Bactroban 2% Oint] 1 applic TOPICAL TID applic Acetaminophen Tab [Tylenol] 650 mg PO Q6HR PRN tab PRN Reason: Mild Pain Or Fever > 100.5 Ibuprofen 400 mg PO Q8HR PRN #12 capsule PRN Reason: Pain Discontinued Sulfamethox-Tmp 800-160Mg [Bactrim DS 800-160 mg] 1 tab PO BID Discharge Medication List Acetaminophen Tab [Tylenol] 650 mg PO Q6HR PRN tab 04/02/19 [Rx] Cephalexin [Keflex] 500 mg PO Q6HR #28 cap 04/02/19 [Rx] Ibuprofen 400 mg PO Q8HR PRN #12 capsule 04/02/19 [Rx] Mupirocin 2% Oint [Bactroban 2% Oint] 1 applic TOPICAL TID applic 04/02/19 [Rx] Follow up Appointment(s)/Referral(s): Leo West DO [Primary Care Provider] - 04/12/19 1:50 pm Lyndon Guerrier MD [STAFF PHYSICIAN] - 1 Week (office to call with appt. time.) Edmond Price PAC [PHYSICIAN ELECTRIC ORGAN INSPECTOR AND REPAIRER] - 04/15/19 3:40 pm Patient Instructions/Handouts: MRSA (Methicillin-Resistant Staphylococcus Aureus) (DC), Abscess (GEN) Activity/Diet/Wound Care/Special Instructions: Regular diet. Activity as tolerated. MRSA precautions. Bleach bath literature given to patient and discussed with family. Keep wounds covered with dressings provided, change daily or as needed if soiled. Antibiotics/labs as per ID Discharge Disposition: HOME SELF-CARE
[2019-04-03] MEDS ORDERED: VANCOMYCIN TROUGH DUE 1 EACH MISC MISCELLANE ONE (03:00)
== END 2019-04-02 12:22 | disposition home or self-care (01) | DRG 558 ==
LOC: EC 21:38 → INTOOBSV 22:54 → 4MS4W 22:54 → OBSVTOIN 03-31 10:36
PROVIDERS: ADMIT Family Medicine; ATTEND Family Medicine
PROC: 0H9JXZZ Drainage of Left Upper Leg Skin, External Approach (ICD-10-PCS; 2019-04-01)
PROC: 0H9KXZZ Drainage of Right Lower Leg Skin, External Approach (ICD-10-PCS; principal; 2019-04-01 14:05)
DX: M71.161 Other infective bursitis, right knee (principal); L02.416 Cutaneous abscess of left lower limb; L03.115 Cellulitis of right lower limb; L03.116 Cellulitis of left lower limb; Z86.14 Personal history of Methicillin resistant Staphylococcus aureus infection; Z82.49 Family history of ischemic heart disease and other diseases of the circulatory system
CPT/HCPCS: 80048; 80053; 80202; 83605; 85025; 87040; 87070; 87075; 87077; 87186; 87205; 96365; 99284

== ENCOUNTER → 2019-12-10 | Outpatient (CLI) | payer BC ==
--- NOTE | 2019-12-10 14:03 | XR ---
EXAMINATION TYPE: XR knee complete RT DATE OF EXAM: 12/10/2019 COMPARISON: NONE HISTORY: Pain TECHNIQUE: Four views are submitted. FINDINGS: Joint spaces are preserved. Osseous structures are intact. No acute fracture seen. Small amount of fluid in the suprapatellar bursa. IMPRESSION: 1. No acute fracture or dislocation. Small amount of fluid in the suprapatellar bursa.
== END | disposition home or self-care (01) ==
LOC: RADXRMAIN 13:39
PROVIDERS: ATTEND Family Medicine
DX: M25.561 Pain in right knee (principal)

== ENCOUNTER → 2021-10-12 | Outpatient (CLI) | payer BC ==
--- NOTE | 2021-10-12 12:25 | XR ---
EXAMINATION TYPE: XR chest 2V DATE OF EXAM: 10/12/2021 COMPARISON: NONE HISTORY: Cough TECHNIQUE: Frontal and lateral views of the chest are obtained. FINDINGS: There is no focal air space opacity, pleural effusion, or pneumothorax seen. The cardiac silhouette size is within normal limits. The osseous structures are intact, there is a slight spina l curvature. IMPRESSION: No acute cardiopulmonary process.
== END ==
LOC: RADXRMAIN 10:01
PROVIDERS: ATTEND Family Medicine
DX: R05.9 Cough, unspecified (principal)
CPT/HCPCS: 71046

== ENCOUNTER → 2022-02-15 | Outpatient (CLI) | payer MEDICAID ==
[2022-02-15 17:55] LABS: Basophils # (A) 0.01 X 10*3/uL (0.00-0.10); Basophils % (A) 0.2 %; Eosinophils # (A) 0.04 X 10*3/uL (0.04-0.35); HCT 41.9 % (39.6-50.0); HGB 13.5 g/dL (13.0-17.0); Immature Grans, Automated 0.2 %; MCH 29.8 pg (27.0-32.0); MCHC 32.2 g/dL (32.0-37.0); MCV 92.5 fL (80.0-97.0); Mean Platelet Volume 10.2 fL (9.5-12.2); Monocytes # (A) 0.42 X 10*3/uL (0.20-1.00); Monocytes % (A) 10.3 %; NRBC Per 100 WBC 0 /100 WBCS (0.0-0.0); Neutrophils # (A) 2.28 X 10*3/uL (1.80-7.70); Neutrophils % (A) 56.3 %; Platelet Count 265 X 10*3/uL (140-440); RBC 4.53 X 10*6/uL (4.40-5.60); RDW 12.4 % (11.5-14.5); WBC 4.06 X 10*3/uL (4.50-10.00)
[2022-02-15 18:03] LABS: ALT 10 U/L (10-49); AST 16 U/L (14-35); Albumin 5.1 g/dL (3.8-4.9); Albumin/Globulin Ratio 2.55 (1.60-3.17); Alkaline Phosphatase 52 U/L (41-126); BUN/Creat Ratio 13.63 Ratio (12.00-20.00); Blood Urea Nitrogen 10.9 mg/dL (9.0-27.0); C Reactive Protein <0.30 mg/dL (0.00-0.80); Calcium 9.5 mg/dL (8.7-10.3); Carbon Dioxide 27.6 mmol/L (20.0-27.5); Chloride 101 mmol/L (96-109); Glucose 76 mg/dL (70-110); Non-African American GFR(CKD) 126.8 (60.0-200.0); Potassium 4.4 mmol/L (3.5-5.5); Sodium 139 mmol/L (135-145); Total Protein 7.1 g/dL (6.2-8.2)
[2022-02-15 18:22] LABS: Erythrocyte Sedimentation Rate 1 mm/Hr (0-15)
[2022-02-15 20:11] LABS: Gliadin AB IgA, Deaminated NEGATIVE (NEGATIVE); Gliadin AB IgA, Unit 0.7 U/mL; Gliadin AB IgG, Deaminated NEGATIVE (NEGATIVE); Gliadin AB IgG, Unit <0.4 U/mL; Tis Transglutaminase IgA Unit <0.5 AI; Tis Transglutaminase IgG Unit <0.8 U/mL; Tissue Transglutaminase IgA NEGATIVE (NEGATIVE); Tissue Transglutaminase IgG NEGATIVE (NEGATIVE)
== END | disposition home or self-care (01) ==
LOC: LABWHC1 13:21
PROVIDERS: ATTEND Nurse Practitioner Family
DX: K52.9 Noninfective gastroenteritis and colitis, unspecified (principal)
CPT/HCPCS: 36415; 80053; 83516; 85025; 85652; 86140